=== PATIENT | female | born 1945 | race Two or more races ===

== ENCOUNTER 2017-06-30 12:45 | Inpatient (IN) | payer OTHER ==
[~2017-06-30] VITALS: Ht 162.6 cm; Wt 69.4 kg
[2017-06-30] MEDS ORDERED: LOTREL 5-10 MG1 CAP PO (14:18)
[2017-06-30] MEDS ORDERED: CLONAZEPAM1 MG PO (14:19)
[2017-06-30] MEDS ORDERED: SYNTHROID50 MCG PO (14:19)
[2017-06-30] MEDS ORDERED: LEXAPRO20 MG PO (14:19)
[2017-07-09] MEDS ORDERED: DOCUSATE SODIU100 MG PO (10:01)
[2017-07-09] MEDS ORDERED: CLONAZEPAM1 MG PO (10:02)
[2017-07-09] MEDS ORDERED: PERCOCET 5-3251 EACH PO (10:02)
== END 2017-07-09 13:47 | disposition home or self-care (01) | DRG 454 ==
LOC: PED 07-08 04:50 → O/R 07-08 04:50 → SURG 07-08 07:00 → RECOVERY 07-08 12:45 → PED 07-08 14:18
PROVIDERS: Orthopaedic Surgery Orthopaedic Surgery of the Spine
PROC: 0RG20A0 Fusion of 2 or more Cervical Vertebral Joints with Interbody Fusion Device, Anterior Approach, Anterior Column, Open Approach (ICD-10-PCS; 2017-07-08)
PROC: 0RG2071 Fusion of 2 or more Cervical Vertebral Joints with Autologous Tissue Substitute, Posterior Approach, Posterior Column, Open Approach (ICD-10-PCS; 2017-07-08)
PROC: 07DS3ZZ Extraction of Vertebral Bone Marrow, Percutaneous Approach (ICD-10-PCS; 2017-07-08)
PROC: 0RT30ZZ Resection of Cervical Vertebral Disc, Open Approach (ICD-10-PCS; principal; 2017-07-08 07:00)
DX: M50.01 Cervical disc disorder with myelopathy, high cervical region (principal); M47.12 Other spondylosis with myelopathy, cervical region; E03.8 Other specified hypothyroidism; I10 Essential (primary) hypertension